=== PATIENT | male | born 1960 | race Caucasian/White ===

== ENCOUNTER 2017-03-14 07:45 | Inpatient (IN) | payer SELFPAY ==
[2017-04-01 12:52] VITALS: BMI 38.4
[2017-04-20] MEDS ORDERED: Iohexol 240 (50 ml) ONE (07:42)
[2017-04-20] MEDS ORDERED: Bupivacaine 0.5% Inj(30mL) ONE (07:42)
[2017-04-20] MEDS ORDERED: Midazolam 2 MG/2 ML VIAL ONE (07:46)
[2017-04-20] MEDS ORDERED: Propofol 10 mg/ml Inj (20 ML) ONE (07:46)
[2017-04-20] MEDS ORDERED: Lactated Ringer's 1,000 ML IV ONE ×5 (07:52→10:15)
[2017-04-20] MEDS ORDERED: Ciprofloxacin 400mg/200ml D5W 400 MG/200 ML BAG IVPB ONE (08:13)
[2017-04-20] MEDS ORDERED: Gentamicin 80 mg in 0.9% NS 160 MG/200 ML BAG IVPB ONE (08:13)
[2017-04-20] MEDS ORDERED: Neostigmine Methylsulfate 3mg/3ml Syringe IV ONE ×2 (10:36→10:41)
[2017-04-20] MEDS ORDERED: Lactated Ringer's 1,000 ML IV SCH (11:00)
[2017-04-20] MEDS: HYDROmorphone 0.5 mg/0.5 ml ISec IVP PRN ×2 (11:42→13:40)
--- NOTE | 2017-04-20 12:00 | PCM.SURG1 ---
Surgeon's Initial Post Op Note - Surgeon's Notes Surgeon: sharon valdovinos Director Recreation: seamus Type of Anesthesia: General Endo Pre-Operative Diagnosis: L RENAL CALCULI Operative Findings: SAME. RETAINED STENT Post-Operative Diagnosis: SAME Operation Performed: L PERCUTANEOUS NEPHROLITHOTOMY, ULTRASONIC LITHOTRIPSY. L LOWER POLE NEPHROSTOMY TUBE INSERTION AND ACCESS, LTIHOTRIPSY. NEPHROSTOGRAM. CYSTOSCOPY, REMOVAL OF RETAINED URTEREAL STENT Specimen/Specimens Removed: STONES, URINE, STENT Estimated Blood Loss: EBL {In ML}: 100 Blood Products Given: N/A Post-Op Condition: Good Date of Surgery/Procedure: 04/20/17 Time of Surgery/Procedure: 11:00
[2017-04-20] MEDS ORDERED: Potassium Ch 20mEq in D5-1/2NS 1,000 ML IV SCH (12:30)
[2017-04-20] MEDS ORDERED: Gentamicin 160 MG in Sodium Chloride 0.9% 100 ML IVPB SCH ×3 (12:45→20:00)
--- NOTE | 2017-04-20 15:14 | CP.PCM.HP ---
Addendum entered and electronically signed by Alphonso Osorio DO 04/20/17 16: 05: for the HTN we will hold his home Diovan and start 5mg of Norvasc for now. We may increase his Norvasc. Original Note: <DevonAlphonso H - Last Filed: 04/20/17 15:38> History of Present Illness - History of Present Illness History of Present Illness: CC: Post op Nephrostomy HPI: Patient is a 57 year old male with a history of HTN and nephrolithiais. He is admitted for post op managment and care after he had 2 nephrostomy tubes placed yesterday and also two urethral stents removed today by Dr. Peterson. He has a hussein catheter in place with no bladder irrigation and also he has two nephrostomy tubes as well on the left side. He is denies any changes in vision , hearing, headches, cough, fever, chills, nausea, vomiting, any recent hematuria, dysuria, diarrhea, joint pain or swelling. PMH: Kidney stones, HTN PSH: urethral stents, nephrostomy, right knee surgery FH: HTN SH: Denies smoking, etoh, or llicit drug use Home medication: Diovan Allergies: Rocephin Present on Admission - Present on Admission Any Indicators Present on Admission: No History of DVT/PE: No History of Uncontrolled Diabetes: No Urinary Catheter: Yes Decubitus Ulcer Present: No Review of Systems - Review of Systems All systems: reviewed and no additional remarkable complaints except - Constitutional Constitutional: absent: Chills, Fever - EENT Ears: absent: Dizziness - Cardiovascular Cardiovascular: absent: Chest Pain, Palpitations - Respiratory Respiratory: absent: Cough, Dyspnea - Gastrointestinal Gastrointestinal: Abdominal Pain. absent: Nausea, Vomiting Additional comments: pain around the upper life side of his abdomen close to the site of two nephrostomy tubes. - Musculoskeletal Musculoskeletal: absent: Numbness, Tingling - Neurological Neurological: absent: Dizziness, Numbness, Paresthesias - Endocrine Endocrine: absent: Palpitations Past Patient History - Past Medical History & Family History Past Medical History?: Yes - Past Social History Smoking Status: Never Smoked - CARDIAC Hx Hypertension: Yes - PULMONARY Hx Respiratory Disorders: Yes (DYSPNEA ON EXERTION) - NEUROLOGICAL Hx Neurological Disorder: No - HEENT Hx HEENT Problems: Yes (GLASSES) - RENAL Hx Kidney Stones: Yes - ENDOCRINE/METABOLIC Hx Endocrine Disorders: No - HEMATOLOGICAL/ONCOLOGICAL Hx Blood Disorders: No - INTEGUMENTARY Hx Dermatological Problems: No - MUSCULOSKELETAL/RHEUMATOLOGICAL Hx Musculoskeletal Disorders: Yes (KNEE SWELLING/ PAIN) - GASTROINTESTINAL Hx Gastrointestinal Disorders: Yes (UMBILICAL HERNIA) - GENITOURINARY/GYNECOLOGICAL Hx Genitourinary Disorders: Yes Hx Hematuria: Yes - PSYCHIATRIC Hx Anxiety: Yes Hx Depression: Yes (ABOUT STONE PROBLEM) - SURGICAL HISTORY Hx Surgeries: Yes Hx Arthroscopy: Yes (RT. KNEE 8 YEARS AGO) Other/Comment: IN [place] CYSTO LITHOTRIPSY. insertion nephrostomy tube - ANESTHESIA Hx Anesthesia: Yes Hx Anesthesia Reactions: No Hx Malignant Hyperthermia: No Has any member of the family had a problem w/ anesthesia?: No Meds Allergies/Adverse Reactions: Allergies Allergy/AdvReac Type Severity Reaction Status Date / Time ceftriaxone [From Rocephin] Allergy Intermediate RASH Verified 03/08/17 09:29 Physical Exam - Constitutional Appears: Non-toxic, No Acute Distress - Head Exam Head Exam: NORMAL INSPECTION - Eye Exam Eye Exam: Normal appearance, PERRL Pupil Exam: NORMAL ACCOMODATION - ENT Exam ENT Exam: Mucous Membranes Moist - Neck Exam Neck exam: Positive for: Normal Inspection - Respiratory Exam Respiratory Exam: Clear to Auscultation Bilateral. absent: Rales, Rhonchi, Wheezes - Cardiovascular Exam Cardiovascular Exam: REGULAR RHYTHM, RRR, +S1, +S2. absent: Gallop, Rubs - GI/Abdominal Exam GI & Abdominal Exam: Normal Bowel Sounds, Soft. absent: Guarding, Rebound, Tenderness - Exam Additional comments: Hussein catheter in place, draining yellow urine. - Extremities Exam Extremities exam: Positive for: normal inspection - Back Exam Back exam: NORMAL INSPECTION, paraspinal tenderness. absent: vertebral tenderness - Psychiatric Exam Psychiatric exam: Normal Affect, Normal Mood - Skin Skin Exam: Dry, Normal Color Results - Vital Signs Recent Vital Signs: Last Vital Signs Temp 97.2 F L 04/20/17 10:52 Pulse 89 04/20/17 13:00 Resp 14 04/20/17 13:00 BP 151/90 H 04/20/17 13:00 Pulse Ox 97 04/20/17 13:00 Assessment & Plan (1) Status post urological surgery Assessment and Plan: Patient is admitted to the regular floor as an inpatient. he has a hussein catheter with hussein bag. He has pain control with 0.5mg of Dilaued prn for pain. He was given a dose of IV Gentamycin 160mg and then Cipro of 400mg Q12H. Follow up urine culture and senstivity. Pain control with Morpine 4mg prn. Status: Acute (2) HTN (hypertension) Assessment and Plan: Will hold home Diovan and have started 5mg of Amlodapine tomorrow morning. Status: Chronic (3) Prophylactic measure Assessment and Plan: Pepcid 20mg, will hold chemic VTE due him being post op with a hussein catheter. SCDs. Status: Acute <Rony Eckert H - Last Filed: 04/20/17 16:22> Results - Vital Signs Recent Vital Signs: Last Vital Signs Temp 97.2 F L 04/20/17 10:52 Pulse 91 H 04/20/17 14:00 Resp 17 04/20/17 14:00 BP 164/96 H 04/20/17 14:00 Pulse Ox 96 04/20/17 14:00 Attending/Attestation - Attestation I have personally seen and examined this patient.: Yes I have fully participated in the care of the patient.: Yes I have reviewed all pertinent clinical information: Yes Notes (Text): 04/20/17 16:18 Medical attending: Patient was seen and examined by me, agrees the above note by biomedical equipment technician. The patient was in PACU when we saw him earlier in the day he had extensive urological procedures done. Per review the notes he had a previous urethral stents that were removed today. He also ultrasound lithotripsy and the placement of 2 left-sided nephrostomy tubes. When we saw him the patient was awake he said that he did have some tenderness over the left flank, he was controlled with the pain medication he is getting. He also has a Hussein catheter as well. There is a past medical history that also includes hypertension. He takes Diovan however considering the recent procedures that he's had will hold off on the Diovan given [facility] for the time being Thank you very much, Rony Eckert
[2017-04-20] MEDS ORDERED: HYDROmorphone 0.5 mg/0.5 ml ISec IVP PRN (16:03)
[2017-04-20 16:59] LABS: BASO % 0.2 % (0.0-2.0); HEMATOCRIT 38.6 % (35.0-51.0); LYMPH # 1.3 K/uL (1.0-4.3); LYMPH % 9.3 % (20.0-40.0); MEAN CELL VOLUME 87.9 fL (80.0-94.0); MEAN CORPUSCULAR HEMOGLOBIN 29.3 pg (27.0-31.0); MEAN CORPUSCULAR HGB CONC 33.3 g/dL (33.0-37.0); MEAN PLATELET VOLUME 8.5 fL (7.2-11.7); MONO # 0.9 K/uL (0.0-0.8); MONO % 6.5 % (0.0-10.0); PLATELET COUNT 282 K/uL (130-400); RED CELL DISTRIBUTION WIDTH 13.4 % (11.5-14.5); WHITE BLOOD COUNT 13.6 K/uL (4.8-10.8)
[2017-04-20 17:18] LABS: POTASSIUM 5.4 mmol/L (3.6-5.2)
[2017-04-20 17:20] LABS: ALB/GLOB RATIO 1.1 (1.0-2.1); CALCIUM 7.8 mg/dl (8.6-10.4); TOTAL PROTEIN 6.5 g/dL (6.3-8.3)
[2017-04-20] MEDS ORDERED: Gentamicin 160 MG in Sodium Chloride 0.9% 100 ML IVPB ONE (18:00)
[2017-04-20 18:35] LABS: NEUTROPHIL 83 % (50-75); TOTAL CELLS COUNTED 100
[2017-04-20] MEDS: Morphine 4 MG/ML VIAL IVP PRN (20:00)
[2017-04-20] MEDS: Ciprofloxacin 400mg/200ml D5W 400 MG/200 ML BAG IVPB SCH (21:18)
[2017-04-21] MEDS: Lactated Ringer's 1,000 ML IV SCH ×2 (00:20→10:50)
[2017-04-21] MEDS: Morphine 4 MG/ML VIAL IVP PRN ×2 (04:46→17:01)
[2017-04-21 07:02] LABS: POTASSIUM 4.1 mmol/L (3.6-5.2)
[2017-04-21 07:04] LABS: ALB/GLOB RATIO 1.2 (1.0-2.1); BILIRUBIN,TOTAL 1.4 mg/dL (0.2-1.3); TOTAL PROTEIN 6.9 g/dL (6.3-8.3)
[2017-04-21 07:05] LABS: CALCIUM 8.3 mg/dl (8.6-10.4); MAGNESIUM 1.9 mg/dL (1.6-2.3); PHOSPHOROUS 3.3 mg/dL (2.5-4.5)
[2017-04-21 07:26] LABS: BASO % 0.3 % (0.0-2.0); EOS % 0.1 % (0.0-4.0); HEMATOCRIT 39.5 % (35.0-51.0); LYMPH # 1.6 K/uL (1.0-4.3); LYMPH % 9.5 % (20.0-40.0); MEAN CORPUSCULAR HEMOGLOBIN 29.1 pg (27.0-31.0); MEAN CORPUSCULAR HGB CONC 33.1 g/dL (33.0-37.0); MEAN PLATELET VOLUME 9.2 fL (7.2-11.7); MONO # 1.3 K/uL (0.0-0.8); MONO % 7.9 % (0.0-10.0); PLATELET COUNT 267 K/uL (130-400); RED CELL DISTRIBUTION WIDTH 13.6 % (11.5-14.5); WHITE BLOOD COUNT 16.4 K/uL (4.8-10.8)
[2017-04-21] MEDS: Ciprofloxacin 400mg/200ml D5W 400 MG/200 ML BAG IVPB SCH ×2 (08:00→19:44)
[2017-04-21 08:28] LABS: NEUTROPHIL 89 % (50-75); TOTAL CELLS COUNTED 100
--- NOTE | 2017-04-21 11:53 | CP.PCM.PN ---
<Kelly Monge DO - Last Filed: 04/21/17 13:49> Subjective - Date & Time of Evaluation Date of Evaluation: 04/21/17 Time of Evaluation: 07:20 - Subjective Subjective: PGY1 progress note for Dr. Eckert Patient seen and examined. Patient states his pain is well-controlled. Patient denies fever and chills. Patient states he has had small sips of water but has not tried to eat yet. Patient's hussein catheter removed this morning. Objective - Vital Signs/Intake and Output Vital Signs (last 24 hours): Temp Pulse Resp BP Pulse Ox 98.8 F 99 H 18 158/96 H 95 04/21/17 07:15 04/21/17 07:15 04/21/17 07:15 04/21/17 07:15 04/21/17 07:15 Intake and Output: 04/21/17 04/21/17 06:59 18:59 Intake Total 2170 Output Total 2500 Balance -330 - Medications Medications: Current Medications Amlodipine Besylate (Norvasc) 5 mg PO DAILY [facility] Docusate Sodium (Colace) 100 mg PO BID [facility] Last Admin: 04/20/17 20:03 Dose: 100 mg Famotidine (Pepcid) 20 mg PO BID [facility] Last Admin: 04/20/17 20:10 Dose: 20 mg Hydromorphone HCl (Dilaudid) 0.5 mg IVP Q5M PRN PRN Reason: Pain, severe (8-10) Last Admin: 04/20/17 16:15 Dose: 0.5 mg Ciprofloxacin (Cipro 400mg/200ml Dsw) 400 mg in 200 mls @ 133 mls/hr IVPB Q12H [facility] Last Admin: 04/20/17 21:18 Dose: 133 mls/hr Lactated Ringer's (Lactated Ringer's) 1,000 mls @ 100 mls/hr IV .Q10H [facility] Last Admin: 04/21/17 00:20 Dose: Not Given Morphine Sulfate (Morphine) 4 mg IVP Q4 PRN PRN Reason: Pain, moderate (4-7) Last Admin: 04/21/17 04:46 Dose: 4 mg - Labs Labs: 04/21/17 06:29 04/21/17 06:29 - Constitutional Appears: No Acute Distress - Head Exam Head Exam: ATRAUMATIC, NORMOCEPHALIC - Eye Exam Eye Exam: EOMI - ENT Exam ENT Exam: Mucous Membranes Moist - Respiratory Exam Respiratory Exam: NORMAL BREATHING PATTERN - Cardiovascular Exam Cardiovascular Exam: +S1, +S2 - GI/Abdominal Exam GI & Abdominal Exam: Soft, Tenderness (left flank), Normal Bowel Sounds - Extremities Exam Extremities Exam: absent: Pedal Edema Additional comments: SCDs - Back Exam Additional comments: left flank- 2 nephrostomy tubes, sanguinous drainage inflammation, mild tenderness around tubes - Neurological Exam Neurological Exam: Alert, Awake - Psychiatric Exam Psychiatric exam: Normal Affect - Skin Skin Exam: Warm Assessment and Plan - Assessment and Plan (Free Text) Assessment: (1) Status post urological surgery Assessment and Plan: He was given a dose of IV Gentamycin 160mg perioperatively and is now on Cipro of 400mg Q12H Follow up urine culture and sensitivity Pain control with Morphine 4mg prn Status: Acute (2) HTN (hypertension) Assessment and Plan: Will hold home Diovan as patient just had procedure on kidney, will continue 5mg norvasc Status: Chronic (3) Prophylactic measure Assessment and Plan: Pepcid 20mg will hold chemic VTE SCDs. Status: Acute <Eckert,Peter H - Last Filed: 04/21/17 15:21> Objective - Vital Signs/Intake and Output Vital Signs (last 24 hours): Temp Pulse Resp BP Pulse Ox 98.8 F 99 H 18 158/96 H 95 04/21/17 07:15 04/21/17 07:15 04/21/17 07:15 04/21/17 07:15 04/21/17 07:15 Intake and Output: 04/21/17 04/21/17 06:59 18:59 Intake Total 2170 Output Total 2500 Balance -330 - Medications Medications: Current Medications Amlodipine Besylate (Norvasc) 5 mg PO DAILY [facility] Last Admin: 04/21/17 12:29 Dose: 5 mg Docusate Sodium (Colace) 100 mg PO BID [facility] Last Admin: 04/21/17 12:30 Dose: 100 mg Famotidine (Pepcid) 20 mg PO BID [facility] Last Admin: 04/21/17 12:30 Dose: 20 mg Hydromorphone HCl (Dilaudid) 0.5 mg IVP Q5M PRN PRN Reason: Pain, severe (8-10) Last Admin: 04/20/17 16:15 Dose: 0.5 mg Ciprofloxacin (Cipro 400mg/200ml Dsw) 400 mg in 200 mls @ 133 mls/hr IVPB Q12H [facility] Last Admin: 04/21/17 08:00 Dose: 133 mls/hr Lactated Ringer's (Lactated Ringer's) 1,000 mls @ 100 mls/hr IV .Q10H [facility] Last Admin: 04/21/17 10:50 Dose: 100 mls/hr Morphine Sulfate (Morphine) 4 mg IVP Q4 PRN PRN Reason: Pain, moderate (4-7) Last Admin: 04/21/17 04:46 Dose: 4 mg - Labs Labs: 04/21/17 06:29 04/21/17 06:29 Attending/Attestation - Attestation I have personally seen and examined this patient.: Yes I have fully participated in the care of the patient.: Yes I have reviewed all pertinent clinical information, including history, physical exam and plan: Yes Notes (Text): 04/21/17 15:18 Medical attending: Patient was seen and examined by me, agrees the above note by medical reviewer. Earlier in the morning the patient's Hussein catheter was removed. The patient stated that his pain was controlled when we saw him. He denied any fevers or chills. He stated that his breathing was stable as well. His white blood cell count is somewhat higher today, it's 16. He is on Cipro IV for the time being were pending cultures at this time if need to be control was changed to IV Primaxin if there is a positive culture is resistant to Cipro. As mentioned before he has to left-sided nephrostomy tubes Thank you very much, Rony Eckert
--- NOTE | 2017-04-21 14:53 | RAD ---
PROCEDURE: HISTORY: LT RENAL CALCULUS COMPARISON: TECHNIQUE: Total fluoroscopic time utilized during the procedure: 360.9 seconds FINDINGS: Submitted images from the current procedure: 11 IMPRESSION: Less than 1 hour fluoroscopic time utilized during performance of the procedure
[2017-04-21 15:52] VITALS: RESP 20; O2SAT 96
[2017-04-22] MEDS: Morphine 4 MG/ML VIAL IVP PRN ×2 (00:50→09:16)
[2017-04-22] MEDS ORDERED: Alum-Mag Hydrox-Simethicone Susp (30 mL) PO STA (06:34)
[2017-04-22 06:53] LABS: POTASSIUM 3.5 mmol/L (3.6-5.2)
[2017-04-22 06:55] LABS: ALB/GLOB RATIO 1.1 (1.0-2.1); BILIRUBIN,TOTAL 1.4 mg/dL (0.2-1.3); TOTAL PROTEIN 7.7 g/dL (6.3-8.3)
--- NOTE | 2017-04-22 07:15 | PCM.URO ---
Urology Progress Note - General General: No Complaints, Tolerating Diet - Subjective Abdominal Pain: No Flank Pain: Yes (mild) Nausea: No Vomiting: No Voiding Well: Yes Hematuria: Yes (mild) Good Stream: Yes Stone Passed: Yes (many stones voided per urethra) Dsypnea: No Chest Pain: No Fever & Chills: No - Objective Lab Studies: Reviewed Lab Results Last 24 Hours: Laboratory Results - last 24 hr 04/21/17 04/22/17 06:29 06:28 WBC 16.4 H RBC 4.49 Hgb 13.1 Hct 39.5 MCV 88.0 MCH 29.1 MCHC 33.1 RDW 13.6 Plt Count 267 MPV 9.2 Neut % (Auto) 82.2 H Lymph % (Auto) 9.5 L [place] % (Auto) 7.9 Eos % (Auto) 0.1 Baso % (Auto) 0.3 Neut # 13.4 H Lymph # 1.6 Stoddard # 1.3 H Eos # 0.0 Baso # 0.0 Neutrophils % (Manual) 89 H Band Neutrophils % 1 Lymphocytes % (Manual) 6 L Monocytes % (Manual) 4 Platelet Estimate Normal RBC Morphology Normal Sodium 136 Potassium 3.5 L Chloride 96 L Carbon Dioxide 28 Anion Gap 16 BUN 20 Creatinine 1.7 H Est GFR ( Amer) 50 Est GFR (Non-Af Amer) 42 Random Glucose 110 Calcium 9.0 Total Bilirubin 1.4 H AST 19 ALT 18 L Alkaline Phosphatase 62 Total Protein 7.7 Albumin 4.0 Globulin 3.7 Albumin/Globulin Ratio 1.1 Intake & Output: Intake & Output 04/21/17 04/22/17 04/22/17 18:59 06:59 18:59 Intake Total 320 Output Total 975 950 Balance -645 -674 Intake: Intake, IV Amount 200 Right Hand 200 Oral 120 Output: Drainage 500 700 Left 300 370 Left Lateral Abdomen 200 330 Urine 475 250 Urethral (Rodrigues) 475 250 Other: # Voids Urethral (Rodrigues) 2 Vital Signs: Vital Signs - 24 hr 04/21/17 04/21/17 04/22/17 15:51 23:05 05:24 Temperature 100.4 F H 99.6 F 98.9 F Pulse Rate 109 H 111 H 98 H Respiratory 20 20 20 Rate Blood Pressure 152/93 H 159/96 H 167/110 H O2 Sat by Pulse 96 96 96 Oximetry - Physical Exam Abdominal Exam: Soft, Non-Tender, Non-Distended (lungs - clear heart- reg rhythm ) Bowel Sounds: Normal Wound: Clean, Healing Well Back: No CVA Tenderness Genitalia: Without Inflammation Urine Color: Redmon Extremities: Normal: Bilateral - Male Phallus: Normal Scrotum: Normal - Plan Additional Information: imp: progressing well. p: home today. outpt fu. antibiotic rx. NT to leg bag. further rx t/f - Date & Time of Note Date: 04/22/17 Time: 07:15
[2017-04-22 07:16] LABS: BASO # 0.1 K/uL (0.0-0.2); BASO % 0.4 % (0.0-2.0); EOS # 0.1 K/uL (0.0-0.7); EOS % 0.5 % (0.0-4.0); HEMATOCRIT 40.5 % (35.0-51.0); MEAN CELL VOLUME 88.7 fL (80.0-94.0); MEAN CORPUSCULAR HGB CONC 33.8 g/dL (33.0-37.0); MEAN PLATELET VOLUME 9.3 fL (7.2-11.7); MONO # 1.7 K/uL (0.0-0.8); MONO % 9.6 % (0.0-10.0); NRBC % 0.1 % (0.0-2.0); RED CELL DISTRIBUTION WIDTH 13.7 % (11.5-14.5); WHITE BLOOD COUNT 17.7 K/uL (4.8-10.8)
[2017-04-22] MEDS ORDERED: Potassium Chloride 20 mEq ER Tab PO ONE (08:22)
[2017-04-22] MEDS: Ciprofloxacin 400mg/200ml D5W 400 MG/200 ML BAG IVPB SCH (08:30)
[2017-04-22 14:23] VITALS: TEMP 98.1
[2017-04-22 14:30] VITALS: BP 150/95; PULSE 95
--- NOTE | 2017-04-22 16:12 | CP.PCM.DIS ---
<Kelly Monge DO - Last Filed: 04/22/17 16:09> Provider - Provider Date of Admission: 04/20/17 06:25 Attending physician: Geraldine Naranjo MD Consults: Dr. Pina Naranjo Time Spent in preparation of Discharge (in minutes): 35 Diagnosis - Discharge Diagnosis (1) Status post urological surgery Status: Acute Comment: Patient POD # 2 left percutaneous nephrolithotomy, ultrasonic lithotripsy, left lower pole nephrostomy tube insertion, cystoscopy, removal retained ureteral stent. (2) HTN (hypertension) Status: Chronic Comment: Changed patient's BP med from Diovan to coreg and norvasc to avoid medication that can affect renal function given recent intervention. Hospital Course - Lab Results Lab Results: Micro Results 04/20/17 16:00 Urine,Kidney Urine Culture - Final No Growth (<1,000 CFU/ML) Most Recent Lab Values WBC 17.7 K/uL (4.8-10.8) H 04/22/17 06:28 RBC 4.57 Mil/uL (4.40-5.90) 04/22/17 06:28 Hgb 13.7 g/dL (12.0-18.0) 04/22/17 06:28 Hct 40.5 % (35.0-51.0) 04/22/17 06:28 MCV 88.7 fL (80.0-94.0) 04/22/17 06:28 MCH 30.0 pg (27.0-31.0) 04/22/17 06:28 MCHC 33.8 g/dL (33.0-37.0) 04/22/17 06:28 RDW 13.7 % (11.5-14.5) 04/22/17 06:28 Plt Count 303 K/uL (130-400) 04/22/17 06:28 MPV 9.3 fL (7.2-11.7) 04/22/17 06:28 Neut % (Auto) 72.5 % (50.0-75.0) 04/22/17 06:28 Lymph % (Auto) 17.0 % (20.0-40.0) L 04/22/17 06:28 [place] % (Auto) 9.6 % (0.0-10.0) 04/22/17 06:28 Eos % (Auto) 0.5 % (0.0-4.0) 04/22/17 06:28 Baso % (Auto) 0.4 % (0.0-2.0) 04/22/17 06:28 Neut # 12.9 K/uL (1.8-7.0) H 04/22/17 06:28 Lymph # 3.0 K/uL (1.0-4.3) 04/22/17 06:28 [place] # 1.7 K/uL (0.0-0.8) H 04/22/17 06:28 Eos # 0.1 K/uL (0.0-0.7) 04/22/17 06:28 Baso # 0.1 K/uL (0.0-0.2) 04/22/17 06:28 Neutrophils % (Manual) 89 % (50-75) H 04/21/17 06:29 Band Neutrophils % 1 % (0-2) 04/21/17 06:29 Lymphocytes % (Manual) 6 % (20-40) L 04/21/17 06:29 Monocytes % (Manual) 4 % (0-10) 04/21/17 06:29 Platelet Estimate Normal (NORMAL) 04/21/17 06:29 RBC Morphology Normal 04/21/17 06:29 Sodium 136 mmol/L (132-148) 04/22/17 06:28 Potassium 3.5 mmol/L (3.6-5.2) L 04/22/17 06:28 Chloride 96 mmol/L (98-107) L 04/22/17 06:28 Carbon Dioxide 28 mmol/L (22-30) 04/22/17 06:28 Anion Gap 16 (10-20) 04/22/17 06:28 BUN 20 mg/dL (9-20) 04/22/17 06:28 Creatinine 1.7 MG/DL (0.8-1.5) H 04/22/17 06:28 Est GFR ( Amer) 50 04/22/17 06:28 Est GFR (Non-Af Amer) 42 04/22/17 06:28 Random Glucose 110 mg/dL (75-110) 04/22/17 06:28 Calcium 9.0 mg/dl (8.6-10.4) 04/22/17 06:28 Phosphorus 3.3 mg/dL (2.5-4.5) 04/21/17 06:29 Magnesium 1.9 mg/dL (1.6-2.3) 04/21/17 06:29 Total Bilirubin 1.4 mg/dL (0.2-1.3) H 04/22/17 06:28 AST 19 U/L (17-59) 04/22/17 06:28 ALT 18 U/L (21-72) L 04/22/17 06:28 Alkaline Phosphatase 62 U/L (38-126) 04/22/17 06:28 Total Protein 7.7 g/dL (6.3-8.3) 04/22/17 06:28 Albumin 4.0 g/dL (3.5-5.0) 04/22/17 06:28 Globulin 3.7 gm/dL (2.2-3.9) 04/22/17 06:28 Albumin/Globulin Ratio 1.1 (1.0-2.1) 04/22/17 06:28 - Hospital Course Hospital Course: On Admission Patient is a 57 year old male with a history of HTN and nephrolithiais. He is admitted for post op managment and care after he had 2 nephrostomy tubes placed yesterday and also two urethral stents removed today by Dr. Peterson. He has a hussein catheter in place with no bladder irrigation and also he has two nephrostomy tubes as well on the left side. He is denies any changes in vision , hearing, headches, cough, fever, chills, nausea, vomiting, any recent hematuria, dysuria, diarrhea, joint pain or swelling. During Hospitalization Patient's blood pressure was managed with norvasc and coreg. Patient's home medication Diovan discontinued to avoid medications that could affect kidney function. Patient was given cipro IV during hospitalization. Urine culture resulted negative for growth. On Discharge Patient is stable for discharge home per Dr. Eckert. Patient is to follow up with Dr. Naranjo within one week. Patient is to stop taking home medication Diovan on discharge due to risk of kidney injury. Patient is being discharged with the following medications: Norvasc 10mg daily, Coreg 6.25mg twice a day. Per Dr. Naranjo, patient is being given the following medications: cipro 500mg twice a day for 10 days, percocet 5/325 take every 4 hours as needed for pain, # 30, colace 100mg three times a day, #100. Patient is to return to the ED if his symptoms reoccur or worsen. This was explained to the patient who understands and agrees. Discharge Exam - Head Exam Head Exam: ATRAUMATIC, NORMOCEPHALIC - Eye Exam Eye Exam: EOMI - ENT Exam ENT Exam: Mucous Membranes Moist - Respiratory Exam Respiratory Exam: Clear to PA & Lateral, NORMAL BREATHING PATTERN - Cardiovascular Exam Cardiovascular Exam: +S1, +S2 - GI/Abdominal Exam GI & Abdominal Exam: Normal Bowel Sounds, Soft - Extremities Exam Extremities exam: normal inspection - Back Exam Additional comments: two left sided nephrostomy tubes in place with sanguinous drainage - Neurological Exam Neurological exam: Alert - Psychiatric Exam Psychiatric exam: Normal Affect - Skin Skin Exam: Warm Discharge Plan - Discharge Medications Prescriptions: amLODIPine [Norvasc] 10 mg PO DAILY #30 tab Carvedilol [Coreg] 6.25 mg PO BID #60 tab - Follow Up Plan Condition: GOOD Disposition: HOME/ ROUTINE Instructions: Ciprofloxacin (By mouth), Oxycodone/Acetaminophen (By mouth), Laxative, Stool Softeners (By mouth), Amlodipine (By mouth), Carvedilol (By mouth), Percutaneous Nephrolithotomy (DC), Nephrostomy Tube Care (DC), Hypertension (DC), Hypertension (GEN) Additional Instructions: Patient is stable for discharge home per Dr. Eckert. Patient is to follow up with Dr. Naranjo within one week. Patient is to stop taking home medication Diovan on discharge due to risk of kidney injury. Patient is being discharged with the following medications: Norvasc 10mg daily, Coreg 6.25mg twice a day. Per Dr. Naranjo, patient is being given the following medications: cipro 500mg twice a day for 10 days, percocet 5/325 take every 4 hours as needed for pain, # 30, colace 100mg three times a day, #100. Patient is to return to the ED if his symptoms reoccur or worsen. This was explained to the patient who understands and agrees. Referrals: Geraldine Naranjo MD [Staff Provider] - 7 Days <Rony Eckert H - Last Filed: 04/23/17 08:24> Provider - Provider Date of Admission: 04/20/17 06:25 Attending physician: Geraldine Naranjo MD Hospital Course - Lab Results Lab Results: Micro Results 04/20/17 16:00 Urine,Kidney Urine Culture - Final No Growth (<1,000 CFU/ML) Most Recent Lab Values WBC 17.7 K/uL (4.8-10.8) H 04/22/17 06:28 RBC 4.57 Mil/uL (4.40-5.90) 04/22/17 06:28 Hgb 13.7 g/dL (12.0-18.0) 04/22/17 06:28 Hct 40.5 % (35.0-51.0) 04/22/17 06:28 MCV 88.7 fL (80.0-94.0) 04/22/17 06:28 MCH 30.0 pg (27.0-31.0) 04/22/17 06:28 MCHC 33.8 g/dL (33.0-37.0) 04/22/17 06:28 RDW 13.7 % (11.5-14.5) 04/22/17 06:28 Plt Count 303 K/uL (130-400) 04/22/17 06:28 MPV 9.3 fL (7.2-11.7) 04/22/17 06:28 Neut % (Auto) 72.5 % (50.0-75.0) 04/22/17 06:28 Lymph % (Auto) 17.0 % (20.0-40.0) L 04/22/17 06:28 [place] % (Auto) 9.6 % (0.0-10.0) 04/22/17 06:28 Eos % (Auto) 0.5 % (0.0-4.0) 04/22/17 06:28 Baso % (Auto) 0.4 % (0.0-2.0) 04/22/17 06:28 Neut # 12.9 K/uL (1.8-7.0) H 04/22/17 06:28 Lymph # 3.0 K/uL (1.0-4.3) 04/22/17 06:28 [place] # 1.7 K/uL (0.0-0.8) H 04/22/17 06:28 Eos # 0.1 K/uL (0.0-0.7) 04/22/17 06:28 Baso # 0.1 K/uL (0.0-0.2) 04/22/17 06:28 Neutrophils % (Manual) 89 % (50-75) H 04/21/17 06:29 Band Neutrophils % 1 % (0-2) 04/21/17 06:29 Lymphocytes % (Manual) 6 % (20-40) L 04/21/17 06:29 Monocytes % (Manual) 4 % (0-10) 04/21/17 06:29 Platelet Estimate Normal (NORMAL) 04/21/17 06:29 RBC Morphology Normal 04/21/17 06:29 Sodium 136 mmol/L (132-148) 04/22/17 06:28 Potassium 3.5 mmol/L (3.6-5.2) L 04/22/17 06:28 Chloride 96 mmol/L (98-107) L 04/22/17 06:28 Carbon Dioxide 28 mmol/L (22-30) 04/22/17 06:28 Anion Gap 16 (10-20) 04/22/17 06:28 BUN 20 mg/dL (9-20) 04/22/17 06:28 Creatinine 1.7 MG/DL (0.8-1.5) H 04/22/17 06:28 Est GFR ( Amer) 50 04/22/17 06:28 Est GFR (Non-Af Amer) 42 04/22/17 06:28 Random Glucose 110 mg/dL (75-110) 04/22/17 06:28 Calcium 9.0 mg/dl (8.6-10.4) 04/22/17 06:28 Phosphorus 3.3 mg/dL (2.5-4.5) 04/21/17 06:29 Magnesium 1.9 mg/dL (1.6-2.3) 04/21/17 06:29 Total Bilirubin 1.4 mg/dL (0.2-1.3) H 04/22/17 06:28 AST 19 U/L (17-59) 04/22/17 06:28 ALT 18 U/L (21-72) L 04/22/17 06:28 Alkaline Phosphatase 62 U/L (38-126) 04/22/17 06:28 Total Protein 7.7 g/dL (6.3-8.3) 04/22/17 06:28 Albumin 4.0 g/dL (3.5-5.0) 04/22/17 06:28 Globulin 3.7 gm/dL (2.2-3.9) 04/22/17 06:28 Albumin/Globulin Ratio 1.1 (1.0-2.1) 04/22/17 06:28 Attending/Attestation - Attestation I have personally seen and examined this patient.: Yes I have fully participated in the care of the patient.: Yes I have reviewed all pertinent clinical information, including history, physical exam and plan: Yes Notes (Text): Medical attending: Patient was seen and examined by me, agrees the above note by medical staff director. As mentioned before the patient no longer has his Hussein catheter. He has the nephrostomy tubes in the left flank. He says that the flank pain was controlled with the medications we were giving him. The patient was able to ambulate on his own, he was tolerating a diet, he denied having shortness of breath, denied having chest pain, denied having abdominal pain. With regards to the patient's high blood pressure, he previously was on Diovan however we made it clear to him that were changing his medication to include Coreg and Norvasc. Urology has left an RX for for Cipro to take he and he will need to follow-up with urology for further care of the nephrostomy tubes that he has Thank you Rony Eckert
--- NOTE | 2017-04-26 12:52 | OP ---
PROCEDURE DATE: 04/20/2017 DATE OF PROCEDURE: 04/20/2017 PREOPERATIVE DIAGNOSES: Left renal calculi. Left hydronephrosis. Left retained encrusted ureteral stent. POSTOPERATIVE DIAGNOSES: Left renal calculi. Left hydronephrosis. Left retained encrusted ureteral stent. PROCEDURE: Left percutaneous nephrolithotomy. Left percutaneous nephrostomy tube access insertion. Nephrostogram. Cystoscopy. Removal of retained ureteral stent. Ultrasonic lithotripsy. DESCRIPTION OF PROCEDURE FOLLOWS: The patient was in supine position. The Rodrigues catheter was ins erted per urethra under sterile conditions. The patient had received general anesthesia. The patient received perioperative antibiotics. Genera l anesthesia was administered via endotracheal tube. The patient was placed in the prone position. The procedure was performed under fluoroscopic control as well as under videoscopic control. The left flank was prepped and draped in a sterile fashion. A 0.035-inch guidewire was inserted into the nephrostomy tube. The track was dilated with flexible f ascial dilators and balloon dilators. The nephroscope sheath was advanced over the balloon. Nephroscopy was performed with the 24-Turkmen 0 degree offset nephroscope. The stent was encountered and noted to be encrusted. Ultrasonic lithotripsy of the stent was performed until the stent was vis ualized. The stent was then grasped and was brought through the nephroscope sheath to the distal end of the nephroscope sheath. However, the stent could not be removed due to its apparent restricted m ovement (secondary to encrustation, within the bladder). The renal pelvic stone was identified. Ultrasonic lithotripsy of the stone was performed. Multiple fragments were removed under ultrasound control with ultrasound and suction. Multiple stones were re moved using grasping forceps. Attention was then turned toward the lower pole where there were a large amount of stones. Direct ac cess into the lower pole was performed using a triangulation technique. An 18 gauge needle was inser alda into the jessica. There was clear urine returned on first stick. The guidewire was inserted. The track was dilated with flexible fascial dilators. A second guidewire was inserted through the 12-Fr ench coaxial sheath. Balloon dilation was performed and the Amplatz sheath was inserted over the bal loon. Nephroscopy was performed. Multiple stones were identified and removed from this lower pole c charli. A nephrostomy tube was left in place as well. The nephroscope was reinserted into the more cephalad mid pole nephroscopy sheath. The ureteropelvic junction was identified where the stent was going down the sheath. A guidewire was inserted through an open-ended catheter down to the bladder. A [place] nephrostomy tube was then inserted. Nephrosc opy was performed and confirmed proper position. Nephrostomy tubes were secured to the skin. Marcaine was infiltrated for local anesthesia. A steril e dressing was applied. The patient was then placed in the prone position. The patient was then placed in the lithotomy position. The genitalia prepped and draped sterilely. Cystoscopy was performed. A 22-Turkmen cystoscope sheath was introduced under direct vision. The lef t ureteral stent was identified and grasped with rigid grasping forceps. The stent was removed under direct visual as well as fluoroscopic control. The stent was noted to be encrusted within the bladd er. The proximal stent had been previously de-encrusted under nephroscopic and ultrasound control. The stent was fully removed intact. A Rodrigues catheter was inserted. The patient was returned to the supine position. The patient tolerat ed the procedure without complication. The patient was transferred to the recovery room in satisfact ory condition. Geraldine Naranjo MD cc: [phone] TT: 04/26/2017 12:51:46 jeffrey
== END 2017-04-22 15:50 | disposition home or self-care (01) | DRG 304 ==
LOC: C.9S 04-20 06:25 → C.6T 04-20 17:48
PROVIDERS: ADMIT Urology; ATTEND Urology
PROC: 0TP98DZ Removal of Intraluminal Device from Ureter, Via Natural or Artificial Opening Endoscopic (ICD-10-PCS; 2017-04-20)
PROC: 0T778DZ Dilation of Left Ureter with Intraluminal Device, Via Natural or Artificial Opening Endoscopic (ICD-10-PCS; 2017-04-20)
PROC: 0TC13ZZ Extirpation of Matter from Left Kidney, Percutaneous Approach (ICD-10-PCS; principal; 2017-04-20 07:45)
PROC: 0T9130Z Drainage of Left Kidney with Drainage Device, Percutaneous Approach (ICD-10-PCS; 2017-04-20 07:45)
DX: N20.0 Calculus of kidney (principal); T83.89XA Other specified complication of genitourinary prosthetic devices, implants and grafts, initial encounter; N13.2 Hydronephrosis with renal and ureteral calculous obstruction; I10 Essential (primary) hypertension; Y73.1 Therapeutic (nonsurgical) and rehabilitative gastroenterology and urology devices associated with adverse incidents; Z82.49 Family history of ischemic heart disease and other diseases of the circulatory system; Z93.6 Other artificial openings of urinary tract status; Z87.442 Personal history of urinary calculi; Y83.1 Surgical operation with implant of artificial internal device as the cause of abnormal reaction of the patient, or of later complication, without mention of misadventure at the time of the procedure

== ENCOUNTER 2017-04-19 07:57 | Day surgery (SDC) | payer SELFPAY ==
[2017-04-19 08:33] VITALS: RESP 18; TEMP 98; O2SAT 98
[2017-04-19] MEDS ORDERED: Propofol 10 mg/ml Inj (20 ML) ONE (09:10)
[2017-04-19] MEDS ORDERED: Midazolam 2 MG/2 ML VIAL ONE (09:11)
[2017-04-19] MEDS ORDERED: Lidocaine Hydrochloride 5 ML INJ ONE (09:14)
[2017-04-19] MEDS ORDERED: Lidocaine 2% Inj (20ml) ONE (09:27)
[2017-04-19] MEDS ORDERED: Ciprofloxacin 400mg/200ml D5W 400 MG/200 ML BAG IVPB STA (09:29)
[2017-04-19] MEDS ORDERED: Iodixanol 320 MG/ML 200 ML BOTTLE IV ONE (09:29)
--- NOTE | 2017-04-19 10:37 | CP.SDSHP ---
Same Day Surgery H & P - History Proposed Procedure: Left percutaneous nephrostomy tube placement. Pre-Op Diagnosis: Ureteral calculus - Allergies Allergies: Allergies ceftriaxone [From Rocephin] Allergy (Intermediate, Verified 03/08/17 09:29) RASH - Physical Exam Vital Signs: Vital Signs 04/19/17 08:10 Temperature 98 F Pulse Rate 90 Respiratory 18 Rate Blood Pressure 166/100 H O2 Sat by Pulse 98 Oximetry Mental Status: Alert & Oriented x3 Neuro: WNL Heart: WNL - Impression Impression: Pt with obstructing renal stone left kidney. Plan left perc. nephrostomy tube. Pt. Evaluated Today:Candidate for Anesthesia & Procedure: Yes (asa 2 malampati 3) - Date & Time Date: 04/19/17 Time: 09:30 Short Stay Discharge - Short Stay Discharge Admitting Diagnosis/Reason for Visit: URINARY CALCULUS, UNSPECIFIED Disposition: HOME/ ROUTINE
--- NOTE | 2017-04-19 10:39 | PCM.SURG1 ---
Surgeon's Initial Post Op Note - Surgeon's Notes Surgeon: David Smith MD Professional Organizer: None Type of Anesthesia: IV Sedation Pre-Operative Diagnosis: Obstructing renal calculus Operative Findings: US showed moderate left hydronephrosis. Post-Operative Diagnosis: Obstructing renal calculus. Operation Performed: Left perc. nephrostomy tube placement. Specimen/Specimens Removed: none Estimated Blood Loss: EBL {In ML}: 3 Blood Products Given: N/A Drains Used: No Drains Post-Op Condition: Fair Date of Surgery/Procedure: 04/19/17 Time of Surgery/Procedure: 09:55
[2017-04-19 11:48] VITALS: BP 145/84; PULSE 82
== END 2017-04-19 12:00 | disposition home or self-care (01) ==
LOC: C.SPRAD 07:57
PROVIDERS: ATTEND Radiology Vascular & Interventional Radiology
DX: N20.9 Urinary calculus, unspecified (principal); N13.30 Unspecified hydronephrosis
CPT/HCPCS: 50395; 50432; 74425; 94770; C1729; C1769; J0744; J1644; J2250; J2704; J3010; Q9966

== ENCOUNTER 2017-05-11 07:53 | Inpatient (IN) | payer SELFPAY ==
[2017-05-06 08:21] VITALS: BMI 35.7
[2017-05-11] MEDS ORDERED: Succinylcholine Chloride 20 mg/ml Syr (5 ml) IV ONE (08:47)
[2017-05-11] MEDS ORDERED: Phenylephrine 10 mg/ml Inj ONE (08:47)
[2017-05-11] MEDS ORDERED: Midazolam 2 MG/2 ML VIAL ONE (08:52)
[2017-05-11] MEDS ORDERED: Propofol 10 mg/ml Inj (20 ML) ONE (08:53)
--- NOTE | 2017-05-11 08:56 | CT ---
PROCEDURE: CT Abdomen and Pelvis without intravenous contrast HISTORY: Pre-op; Dx.: UROLITHIASIS COMPARISON: None. TECHNIQUE: Without contrast.. Contrast Dose: 0 Radiation dose: Total exam DLP = 1053.92 mGy-cm. This CT exam was performed using one or more of the following dose reduction techniques: Automated exposure control, adjustment of the mA and/or kV according to patient size, and/or use of iterative reconstruction technique. FINDINGS: LOWER THORAX: Unremarkable. LIVER: Normal size. Smooth contour. Mild diffusely diminished attenuation consistent with fatty infiltration. No mass. No biliary ductal dilatation. GALLBLADDER AND BILE DUCTS: Unremarkable. PANCREAS: Unremarkable. No gross lesion or ductal dilatation. SPLEEN: Unremarkable. ADRENALS: Unremarkable. No mass. KIDNEYS AND URETERS: Unremarkable right kidney. Numerous left renal calculi. Left percutaneous nephro ureterostomy tube noted in upper pole of left kidney. In the lower pole there is a percutaneous nephrostomy tube. The ureteral stent terminates in the distal ureter. There are 2 small calculi alongside the distal aspect of the ureteral stent, best demonstrated on series 602, image 111. There are numerous small left renal calculi. There is irregularity of the left renal contour in the upper pole which may reflect prior ischemia or infection. There is an incipient staghorn calculus in the lower pole of the left kidney extending to the renal pelvis. There are 2 low-density left renal masses, likely cysts. There is no right renal mass. VASCULATURE: Unremarkable. No aortic aneurysm. BOWEL: Diverticulosis of the descending and proximal sigmoid colon. No evidence of diverticulitis. No bowel obstruction. No other abnormal bowel loops. APPENDIX: Unremarkable. Normal appendix. PERITONEUM: Unremarkable. No free fluid. No free air. LYMPH NODES: Unremarkable. No enlarged lymph nodes. BLADDER: Suboptimally distended. No gross abnormality. REPRODUCTIVE: Normal prostate. BONES: No acute fracture. OTHER FINDINGS: None. IMPRESSION: Left percutaneous nephro ureterostomy and 2nd left percutaneous nephrostomy tube noted. Staghorn calculus. Numerous additional smaller calculi. Two very small calculi are seen adjacent to the distal aspect of the left ureterostomy tube. No hydronephrosis. Several left renal low-density masses, likely cysts. Fatty liver. Additional minor findings as above.
[2017-05-11] MEDS ORDERED: Bupivacaine HCl 0.5% PF (10 ml) Inj ONE (09:18)
[2017-05-11] MEDS ORDERED: Iohexol 240 (50 ml) ONE ×2 (09:19→09:25)
[2017-05-11] MEDS ORDERED: Lactated Ringer's 1,000 ML IV ONE ×4 (09:30→15:00)
[2017-05-11] MEDS ORDERED: Ciprofloxacin 400mg/200ml D5W 400 MG/200 ML BAG IVPB ONE (09:36)
[2017-05-11] MEDS ORDERED: White Petrolatum/Mineral Oil Ophth Oint(3.5 gm) ONE (09:45)
--- NOTE | 2017-05-11 10:32 | RAD ---
Abdomen radiographs with obliques Comparison: CT abdomen pelvis without contrast performed 05/11/17, abdomen multiple views performed 05/06/17 Indication: Preop border Findings: Percutaneous left nephro ureterostomy tube. Second percutaneous left nephrostomy tube. Multiple left renal calculi. No definite right renal calculus evident. Nonobstructive bowel gas pattern. Mild degenerative changes. No acute osseous abnormality is detected. Impression: Left renal calculi. Left nephrostomy and nephro ureterostomy tubes.
[2017-05-11] MEDS ORDERED: ePHEDrine 50 mg/ml Inj ONE (10:42)
[2017-05-11] MEDS ORDERED: Oxycodone/Acetaminophen 5/325 mg Tab PO PRN (13:10)
--- NOTE | 2017-05-11 13:11 | PCM.SURG1 ---
Surgeon's Initial Post Op Note - Surgeon's Notes Surgeon: Celia MASSEY Clinical Education Assistant: NONE Type of Anesthesia: General Endo Pre-Operative Diagnosis: L RENAL CALCULI. HYDRONEPHROSIS Operative Findings: SAME Post-Operative Diagnosis: SAME Operation Performed: L PERCUTANEOUS NEPHROLITHOTOMY, ULTRASONIC LITHOSTRIPSY. LASER LITHOTRIPSY. FLEXILBLE NEPHROSCOPY. LOWER POLE PERCUTANEOUS NEPHROSTOMY ACCESS, ULTRASONIC LITHOTRIPSY. NEPHROSTOGRAM Specimen/Specimens Removed: URINE. STONES Estimated Blood Loss: EBL {In ML}: 150 Blood Products Given: N/A Post-Op Condition: Good Date of Surgery/Procedure: 05/11/17 Time of Surgery/Procedure: 12:45
[2017-05-11] MEDS ORDERED: Ciprofloxacin 400mg/200ml D5W 400 MG/200 ML BAG IVPB SCH (13:15)
[2017-05-11] MEDS: HYDROmorphone 0.5 mg/0.5 ml ISec IVP PRN ×2 (13:30→13:35)
--- NOTE | 2017-05-11 15:42 | RAD ---
PROCEDURE: Intraoperative fluoroscopy HISTORY: LT KIDNEY STONES COMPARISON: Not available TECHNIQUE: Intraoperative fluoroscopy was provided for percutaneous nephrostomy catheter exchange. Total time of fluoroscopy was 566.1 seconds. FINDINGS: Multiple fluoroscopic spot films are submitted. Films are on file for review. IMPRESSION: Fluoroscopy provided.
--- NOTE | 2017-05-11 19:35 | CP.PCM.HP ---
<Magda Jacobs - Last Filed: 05/11/17 19:28> History of Present Illness - History of Present Illness History of Present Illness: CC: post-op nephrolithotomy with lithotripsy HPI: 57 year old male with a past medical history of hypertension and nephrolithiasis, is post-op left nephrolithostomy with lithotripsy. He is admitted for post operative medical management. Patient was previously admitted in 04/2017 for medical management for post-operative nephrostomy with two tubes placed on the left and stent removal. Patient reports feeling tired, weak, dizzy and a little pain around surgical site. Patient denies chest pain, abdominal pain, headaches, shortness of breath, fevers, cough, leg pain, nausea , or vomiting. PMD: Dr. Gasca PMHx: HTN, nephrolithiasis PSx: "Right leg surgery 10 years ago"; stent for renal calculi 2014 FamHx: Brother- [place]; Father- [place] Allergies: Ceftriaxone Medications: "blood pressure medicine" Present on Admission - Present on Admission Any Indicators Present on Admission: No Review of Systems - Constitutional Constitutional: Fatigue, Weakness. absent: Fever, Headache - EENT Eyes: absent: Change in Vision, Other Visual Disturbances Ears: Dizziness - Cardiovascular Cardiovascular: absent: Chest Pain, Dyspnea, Leg Edema, Palpitations - Respiratory Respiratory: absent: Cough, Dyspnea - Gastrointestinal Gastrointestinal: absent: Abdominal Pain (sore around surgial site), Nausea, Vomiting - Genitourinary Genitourinary: absent: Dysuria, Urinary Frequency - Musculoskeletal Musculoskeletal: absent: Back Pain - Integumentary Integumentary: absent: Swelling - Neurological Neurological: Dizziness, Weakness. absent: Headaches, Loss of Vision - Endocrine Endocrine: Fatigue. absent: Palpitations Past Patient History - Past Medical History & Family History Past Medical History?: Yes - Past Social History Smoking Status: Never Smoked - CARDIAC Hx Cardiac Disorders: Yes Hx Hypertension: Yes Other/Comment: HX:CARDIAC CATH DONE 2006-"NO PROBLEMS" - PULMONARY Hx Respiratory Disorders: Yes (DYSPNEA ON EXERTION) - NEUROLOGICAL Hx Neurological Disorder: No - HEENT Hx HEENT Problems: Yes (GLASSES) - RENAL Hx Chronic Kidney Disease: Yes Hx Kidney Stones: Yes Other/Comment: Nephrostomy Tubes, left x2 - ENDOCRINE/METABOLIC Hx Endocrine Disorders: No - HEMATOLOGICAL/ONCOLOGICAL Hx Blood Disorders: No - INTEGUMENTARY Hx Dermatological Problems: No - MUSCULOSKELETAL/RHEUMATOLOGICAL Hx Musculoskeletal Disorders: Yes (KNEE SWELLING/ PAIN) Hx Falls: No Other/Comment: HX: UMBILICAL HERNIA - GASTROINTESTINAL Hx Gastrointestinal Disorders: Yes (UMBILICAL HERNIA) - GENITOURINARY/GYNECOLOGICAL Hx Genitourinary Disorders: Yes Hx Hematuria: Yes - PSYCHIATRIC Hx Psychophysiologic Disorder: Yes Hx Anxiety: Yes Hx Depression: Yes (ABOUT STONE PROBLEM) Hx Substance Use: No - SURGICAL HISTORY Hx Surgeries: Yes Hx Arthroscopy: Yes (RT. KNEE 8 YEARS AGO) Hx Cardiac Catheterization: Yes (2006-"NO PROBLEMS-EVERYTHING OK") Other/Comment: IN [place] CYSTO LITHOTRIPSY. insertion nephrostomy tube - ANESTHESIA Hx Anesthesia: Yes Hx Anesthesia Reactions: No Hx Malignant Hyperthermia: No Meds Allergies/Adverse Reactions: Allergies Allergy/AdvReac Type Severity Reaction Status Date / Time ceftriaxone [From Rocephin] Allergy Intermediate RASH Verified 03/08/17 09:29 Physical Exam - Constitutional Appears: No Acute Distress - Head Exam Head Exam: NORMAL INSPECTION, NORMOCEPHALIC - Eye Exam Eye Exam: EOMI, Normal appearance - ENT Exam ENT Exam: Mucous Membranes Moist - Neck Exam Neck exam: Positive for: Normal Inspection - Respiratory Exam Respiratory Exam: Clear to Auscultation Bilateral, NORMAL BREATHING PATTERN. absent: Rhonchi, Wheezes - Cardiovascular Exam Cardiovascular Exam: REGULAR RHYTHM, +S1, +S2 - GI/Abdominal Exam GI & Abdominal Exam: Normal Bowel Sounds, Soft - Extremities Exam Extremities exam: Positive for: normal inspection, pedal pulses present. Negative for: calf tenderness, pedal edema, tenderness - Neurological Exam Neurological exam: Alert, Oriented x3 - Psychiatric Exam Psychiatric exam: Normal Affect, Normal Mood - Skin Skin Exam: Dry, Intact, Normal Color, Warm Results - Vital Signs Recent Vital Signs: Last Vital Signs Temp 98.1 F 05/11/17 17:00 Pulse 89 05/11/17 17:00 Resp 11 L 05/11/17 17:00 BP 137/89 05/11/17 17:00 Pulse Ox 100 05/11/17 17:00 - Labs Labs: Laboratory Results - last 24 hr 05/11/17 09:08 Blood Type A POSITIVE Antibody Screen Negative Assessment & Plan (1) History of nephrolithotomy with removal of calculi Assessment and Plan: Monitor post-op surgical site. Tubes in place Tylenol 650mg PO Q6 PRN Percocet 2 tabs PO Q4 prn for severe pain Cipro 400mg IV Q[address] Urine Cx- ordered Status: Acute (2) HTN (hypertension) Assessment and Plan: Monitor BP Norvasc 10mg PO daily Heart Healthy Diet, 2gm Status: Chronic (3) Prophylactic measure Assessment and Plan: Pepcid 20mg PO daily Heart Healthy Diet, 2gm Heparin 5,000 units SC Q8 SCDs Activity as tolerated Status: Acute <Jan Aponte M - Last Filed: 05/12/17 15:59> Results - Vital Signs Recent Vital Signs: Last Vital Signs Temp 98.5 F 05/12/17 08:26 Pulse 84 05/12/17 08:26 Resp 20 05/12/17 08:26 BP 158/90 H 05/12/17 08:26 Pulse Ox 96 05/12/17 08:26 - Labs Result Diagrams: 05/12/17 06:14 05/12/17 06:14 Labs: Laboratory Results - last 24 hr 05/12/17 05/12/17 06:14 06:14 WBC 10.5 RBC 4.41 Hgb 13.0 Hct 38.9 MCV 88.3 MCH 29.4 MCHC 33.3 RDW 13.3 Plt Count 422 H MPV 8.8 Neut % (Auto) 65.7 Lymph % (Auto) 22.1 [place] % (Auto) 9.3 Eos % (Auto) 2.3 Baso % (Auto) 0.6 Neut # 6.9 Lymph # 2.3 [place] # 1.0 H Eos # 0.2 Baso # 0.1 Sodium 137 Potassium 3.3 L Chloride 99 Carbon Dioxide 28 Anion Gap 13 BUN 18 Creatinine 1.3 Est GFR ( Amer) > 60 Est GFR (Non-Af Amer) 57 Random Glucose 111 H Calcium 8.5 L Total Bilirubin 0.7 AST 20 ALT 29 Alkaline Phosphatase 52 Total Protein 6.8 Albumin 3.5 Globulin 3.3 Albumin/Globulin Ratio 1.0 Attending/Attestation - Attestation I have personally seen and examined this patient.: Yes I have fully participated in the care of the patient.: Yes I have reviewed all pertinent clinical information: Yes Notes (Text): 05/12/17 15:58 Patient was seen and examined at bedside with the resident Patient is status post lithotripsy. Postop management as per urology Discussed the plan of care with the resident and agree with the history and physical and assessment/plan by the resident.
[2017-05-11] MEDS: Oxycodone/Acetaminophen 5/325 mg Tab PO PRN (19:42)
[2017-05-11] MEDS: Ciprofloxacin 400mg/200ml D5W 400 MG/200 ML BAG IVPB SCH (22:21)
[2017-05-12 06:35] LABS: BASO # 0.1 K/uL (0.0-0.2); BASO % 0.6 % (0.0-2.0); EOS # 0.2 K/uL (0.0-0.7); EOS % 2.3 % (0.0-4.0); LYMPH # 2.3 K/uL (1.0-4.3); LYMPH % 22.1 % (20.0-40.0); MEAN CELL VOLUME 88.3 fL (80.0-94.0); MEAN CORPUSCULAR HEMOGLOBIN 29.4 pg (27.0-31.0); MEAN CORPUSCULAR HGB CONC 33.3 g/dL (33.0-37.0); MEAN PLATELET VOLUME 8.8 fL (7.2-11.7); MONO % 9.3 % (0.0-10.0); NEUT # 6.9 K/uL (1.8-7.0); NEUT % 65.7 % (50.0-75.0); RBC 4.41 Mil/uL (4.40-5.90); RED CELL DISTRIBUTION WIDTH 13.3 % (11.5-14.5); WHITE BLOOD COUNT 10.5 K/uL (4.8-10.8)
[2017-05-12 07:18] LABS: ALBUMIN 3.5 g/dL (3.5-5.0)
[2017-05-12 07:20] LABS: AST/SGOT 20 U/L (17-59); BLOOD UREA NITROGEN 18 mg/dL (9-20); GFR AFRICAN-AMERICAN > 60; GFR NON-AFRICAN AMERICAN 57
[2017-05-12 07:21] LABS: ALT/SGPT 29 U/L (21-72); CALCIUM 8.5 mg/dl (8.6-10.4)
--- NOTE | 2017-05-12 07:31 | PCM.URO ---
Urology Progress Note - General General: No Complaints, Tolerating Diet - Subjective Abdominal Pain: No Flank Pain: Yes (MILD) Nausea: No Vomiting: No Hematuria: Yes (MILD, VIA NT) Dsypnea: No Chest Pain: No Fever & Chills: No - Objective Lab Results Last 24 Hours: Laboratory Results - last 24 hr 05/11/17 05/12/17 09:08 06:14 WBC 10.5 RBC 4.41 Hgb 13.0 Hct 38.9 MCV 88.3 MCH 29.4 MCHC 33.3 RDW 13.3 Plt Count 422 H MPV 8.8 Neut % (Auto) 65.7 Lymph % (Auto) 22.1 [place] % (Auto) 9.3 Eos % (Auto) 2.3 Baso % (Auto) 0.6 Neut # 6.9 Lymph # 2.3 [place] # 1.0 H Eos # 0.2 Baso # 0.1 Blood Type A POSITIVE Antibody Screen Negative Intake & Output: Intake & Output 05/11/17 05/12/17 05/12/17 18:59 06:59 18:59 Intake Total 1750 Output Total 1675 1979 Balance -9225 230 Intake: Intake, IV Amount 1100 Right Antecubital 1100 Oral 650 Output: Drainage 480 Left 300 Left Lateral Abdomen 180 Urine 1675 1500 Urethral (Rodrigues) 1500 Other: Voiding Method Indwelling Catheter Vital Signs: Vital Signs - 24 hr 05/11/17 05/11/17 05/11/17 08:05 13:00 13:15 Temperature 97.3 F L 97.6 F Pulse Rate 83 91 H 92 H Pulse Rate [ Radial] Respiratory 20 11 L 12 Rate Blood Pressure 162/93 H 149/93 H 147/93 H O2 Sat by Pulse 98 100 100 Oximetry 05/11/17 05/11/17 05/11/17 13:30 13:45 14:00 Temperature Pulse Rate 86 82 75 Pulse Rate [ Radial] Respiratory 15 17 17 Rate Blood Pressure 158/95 H 134/82 139/78 O2 Sat by Pulse 100 100 100 Oximetry 05/11/17 05/11/17 05/11/17 14:05 14:15 14:30 Temperature Pulse Rate 79 78 78 Pulse Rate [ Radial] Respiratory 19 14 12 Rate Blood Pressure 137/89 141/88 135/87 O2 Sat by Pulse 100 100 100 Oximetry 07/03/2305/11/17 05/11/17 14:45 15:00 16:00 Temperature Pulse Rate 76 84 84 Pulse Rate [ Radial] Respiratory 11 L 14 13 Rate Blood Pressure 143/81 146/87 142/84 O2 Sat by Pulse 100 100 100 Oximetry 05/11/17 05/11/17 05/11/17 17:00 18:00 19:00 Temperature 98.1 F 98.7 F Pulse Rate 89 92 H 101 H Pulse Rate [ Radial] Respiratory 11 L 10 L 13 Rate Blood Pressure 137/89 135/97 H 151/94 H O2 Sat by Pulse 100 97 94 L Oximetry 05/11/17 05/11/17 05/11/17 19:38 20:00 23:20 Temperature 97.9 F 97.9 F Pulse Rate 95 H 97 H Pulse Rate [ 95 H Radial] Respiratory 20 20 Rate Blood Pressure 154/94 H 152/92 H O2 Sat by Pulse 94 L 95 Oximetry - Physical Exam Abdominal Exam: Soft, Non-Tender, Non-Distended Bowel Sounds: Normal (LUNGS - CLEAR HEART- REG RHYTHM) Dressing: Dry, Intact Urinary Catheter Draining Well: Yes Urine Color: Light [place] Extremities: Normal: Bilateral - Male Phallus: Normal, Uncircumcised - Plan Advance Diet: Yes Discontinue Urinary Catheter: Yes Wound Care: Yes Catheter Care: Yes Ambulation - Out of Bed: Yes Intake & Output: Yes See Orders: Yes Additional Information: IMP: DOING WELL. POST- PERC NEPHROLITHOTOMY - Date & Time of Note Date: 05/12/17 Time: 07:30
[2017-05-12] MEDS ORDERED: Potassium Chloride 20 mEq ER Tab PO ONE (09:10)
[2017-05-12] MEDS ORDERED: Pneumococcal 23-Valent Vaccine IM ONE (10:00)
[2017-05-12] MEDS: Ciprofloxacin 400mg/200ml D5W 400 MG/200 ML BAG IVPB SCH ×2 (10:18→21:30)
[2017-05-12] MEDS: Oxycodone/Acetaminophen 5/325 mg Tab PO PRN (14:22)
--- NOTE | 2017-05-12 18:52 | CP.PCM.PN ---
<ChrisAshwinijaney E - Last Filed: 05/12/17 19:10> Subjective - Date & Time of Evaluation Date of Evaluation: 05/12/17 Time of Evaluation: 09:30 - Subjective Subjective: Medicine Note (PGY 1) : Dr. Aponte Patient is s/p L percutaneous nephrolithotomy, ultrasonic lithostripsy day 1, who was seen and examined at bedside. Patient states that he is doing well with minimal pain. Patient denies chest pain, shortness of breath, fever, chills, nausea and vomiting. Patient is yet to pass flatus and have a bowel movement. Patient is tolerating diet and ambulating. Objective - Vital Signs/Intake and Output Vital Signs (last 24 hours): Temp Pulse Resp BP Pulse Ox 98.2 F 76 20 137/89 96 05/12/17 15:11 05/12/17 15:11 05/12/17 15:11 05/12/17 15:11 05/12/17 15:11 Intake and Output: 05/12/17 05/12/17 06:59 18:59 Intake Total 1750 400 Output Total 1980 900 Balance -230 -500 - Medications Medications: Current Medications Acetaminophen (Tylenol 325mg Tab) 650 mg PO Q6 PRN PRN Reason: Pain, Mild (1-3) Amlodipine Besylate (Norvasc) 10 mg PO DAILY [facility] Last Admin: 05/12/17 10:16 Dose: 10 mg Carvedilol (Coreg) 6.25 mg PO BID [facility] Last Admin: 05/12/17 17:46 Dose: 6.25 mg Famotidine (Pepcid) 20 mg PO DAILY@1800 [facility] Last Admin: 05/12/17 17:46 Dose: 20 mg Heparin Sodium (Porcine) (Heparin) 5,000 units SC Q8 [facility] Last Admin: 05/12/17 13:19 Dose: 5,000 units Ciprofloxacin (Cipro 400mg/200ml Dsw) 400 mg in 200 mls @ 200 mls/hr IVPB Q12H [facility] Last Admin: 05/12/17 10:18 Dose: 200 mls/hr Oxycodone/Acetaminophen (Percocet 5/325 Mg Tab) 2 tab PO Q4H PRN PRN Reason: Pain, moderate (4-7) Stop: 05/14/17 13:09 Last Admin: 05/12/17 14:22 Dose: 2 tab - Labs Labs: 05/12/17 06:14 05/12/17 06:14 - Constitutional Appears: Well, No Acute Distress - Head Exam Head Exam: NORMAL INSPECTION, NORMOCEPHALIC - Eye Exam Eye Exam: EOMI, Normal appearance - ENT Exam ENT Exam: Mucous Membranes Moist, Normal Exam - Respiratory Exam Respiratory Exam: Clear to Ausculation Bilateral, NORMAL BREATHING PATTERN - Cardiovascular Exam Cardiovascular Exam: REGULAR RHYTHM, +S1, +S2 - GI/Abdominal Exam GI & Abdominal Exam: Soft, Normal Bowel Sounds - Extremities Exam Extremities Exam: Normal Capillary Refill, Normal Inspection - Neurological Exam Neurological Exam: Alert, Awake, Oriented x3 - Psychiatric Exam Psychiatric exam: Normal Affect, Normal Mood - Skin Skin Exam: Dry, Normal Color, Warm Assessment and Plan (1) Renal calculus, left Assessment & Plan: s/p day 1 L percutaneous nephrolithotomy, ultrasonic lithostripsy day Aferbrile Surgical site was clean, dressing intact Left nephrostomy tubes in place Tylenol 650mg PO Q6 PRN Percocet 2 tabs PO Q4 prn for severe pain Cipro 400mg IV Q[address]---> d/c 05/12/17 * Good urine output Urine Cx- Gram + cocci * Continue antibiotics PT and OT evaluation * Patient is ambulating on his own without assistance Status: Acute (2) HTN (hypertension) Assessment & Plan: Monitor BP Norvasc 10mg PO daily Coreg 6.25mg PO BID (Home medication) --->Started on 05/12/17 Heart Healthy Diet, 2gm Status: Chronic (3) Prophylactic measure Assessment & Plan: Pepcid 20mg PO daily Heart Healthy Diet, 2gm Heparin 5,000 units SC Q8 SCDs Activity as tolerated ( Patient is ambulating) Status: Acute <FadiMikejose Elder - Last Filed: 05/13/17 08:53> Objective - Vital Signs/Intake and Output Vital Signs (last 24 hours): Temp Pulse Resp BP Pulse Ox 98.4 F 100 H 18 153/93 H 95 05/13/17 07:25 05/13/17 07:25 05/13/17 07:25 05/13/17 07:25 05/13/17 07:25 Intake and Output: 05/13/17 05/13/17 06:59 18:59 Intake Total 1500 Output Total 1725 Balance -225 - Medications Medications: Current Medications Acetaminophen (Tylenol 325mg Tab) 650 mg PO Q6 PRN PRN Reason: Pain, Mild (1-3) Amlodipine Besylate (Norvasc) 10 mg PO DAILY [facility] Last Admin: 05/12/17 10:16 Dose: 10 mg Carvedilol (Coreg) 6.25 mg PO BID [facility] Last Admin: 05/12/17 17:46 Dose: 6.25 mg Famotidine (Pepcid) 20 mg PO DAILY@1800 [facility] Last Admin: 05/12/17 17:46 Dose: 20 mg Heparin Sodium (Porcine) (Heparin) 5,000 units SC Q8 [facility] Last Admin: 05/13/17 05:30 Dose: 5,000 units Ciprofloxacin (Cipro 400mg/200ml Dsw) 400 mg in 200 mls @ 200 mls/hr IVPB Q12H [facility] Last Admin: 05/12/17 21:30 Dose: 200 mls/hr Oxycodone/Acetaminophen (Percocet 5/325 Mg Tab) 2 tab PO Q4H PRN PRN Reason: Pain, moderate (4-7) Stop: 05/14/17 13:09 Last Admin: 05/12/17 14:22 Dose: 2 tab - Labs Labs: 05/13/17 07:05 05/13/17 07:05 Attending/Attestation - Attestation I have personally seen and examined this patient.: Yes I have fully participated in the care of the patient.: Yes I have reviewed all pertinent clinical information, including history, physical exam and plan: Yes Notes (Text): 05/13/17 08:52 Patient was seen and examined at bedside with the resident Patient denies any pain at the nephrostomy tubes site Output noted from the nephrostomy tubes Urology follow-up seen and appreciated Discussed the plan of care with the resident agree with the assessment and plan by the resident.
[2017-05-13 07:33] LABS: BASO # 0.1 K/uL (0.0-0.2); BASO % 0.6 % (0.0-2.0); EOS # 0.4 K/uL (0.0-0.7); EOS % 3.3 % (0.0-4.0); HEMOGLOBIN 13.7 g/dL (12.0-18.0); LYMPH # 2.1 K/uL (1.0-4.3); LYMPH % 19.6 % (20.0-40.0); MEAN CELL VOLUME 87.5 fL (80.0-94.0); MEAN CORPUSCULAR HEMOGLOBIN 29.6 pg (27.0-31.0); MEAN CORPUSCULAR HGB CONC 33.8 g/dL (33.0-37.0); MEAN PLATELET VOLUME 8.9 fL (7.2-11.7); MONO % 9.8 % (0.0-10.0); NEUT # 7.2 K/uL (1.8-7.0); NEUT % 66.7 % (50.0-75.0); NRBC % 0.1 % (0.0-2.0); RBC 4.62 Mil/uL (4.40-5.90); RED CELL DISTRIBUTION WIDTH 13.4 % (11.5-14.5); WHITE BLOOD COUNT 10.7 K/uL (4.8-10.8)
[2017-05-13 07:45] LABS: ALBUMIN 3.8 g/dL (3.5-5.0)
[2017-05-13 07:48] LABS: ALB/GLOB RATIO 1.1 (1.0-2.1); ALT/SGPT 28 U/L (21-72); AST/SGOT 20 U/L (17-59); BLOOD UREA NITROGEN 18 mg/dL (9-20); GFR AFRICAN-AMERICAN > 60; GFR NON-AFRICAN AMERICAN 57
[2017-05-13 07:49] LABS: CALCIUM 9.1 mg/dl (8.6-10.4); MAGNESIUM 2.1 mg/dL (1.6-2.3)
[2017-05-13 08:15] VITALS: RESP 18; TEMP 98.4; O2SAT 95
[2017-05-13 10:24] VITALS: BP 160/99; PULSE 82
[2017-05-13] MEDS: Ciprofloxacin 400mg/200ml D5W 400 MG/200 ML BAG IVPB SCH (10:25)
[2017-05-13] MEDS ORDERED: Potassium Chloride 20 mEq ER Tab PO ONE ×2 (11:28→12:45)
--- NOTE | 2017-05-13 14:11 | PCM.URO ---
Urology Progress Note - General General: No Complaints, Tolerating Diet - Subjective Abdominal Pain: No Flank Pain: Yes (mild) Nausea: No Vomiting: No Voiding Well: Yes Dysuria: No Hematuria: No Urinary Urgency: No Good Stream: Yes Weak Stream: No Stone Passed: No Chest Pain: No - Objective Lab Studies: Reviewed Lab Results Last 24 Hours: Laboratory Results - last 24 hr 05/13/17 05/13/17 07:05 07:05 WBC 10.7 RBC 4.62 Hgb 13.7 Hct 40.4 MCV 87.5 MCH 29.6 MCHC 33.8 RDW 13.4 Plt Count 401 H MPV 8.9 Neut % (Auto) 66.7 Lymph % (Auto) 19.6 L [place] % (Auto) 9.8 Eos % (Auto) 3.3 Baso % (Auto) 0.6 Neut # 7.2 H Lymph # 2.1 [place] # 1.0 H Eos # 0.4 Baso # 0.1 Sodium 137 Potassium 3.5 L Chloride 99 Carbon Dioxide 27 Anion Gap 14 BUN 18 Creatinine 1.3 Est GFR ( Amer) > 60 Est GFR (Non-Af Amer) 57 Random Glucose 99 Calcium 9.1 Phosphorus 3.9 Magnesium 2.1 Total Bilirubin 0.8 AST 20 ALT 28 Alkaline Phosphatase 66 Total Protein 7.4 Albumin 3.8 Globulin 3.6 Albumin/Globulin Ratio 1.1 Intake & Output: Intake & Output 05/12/17 05/13/17 05/13/17 18:59 06:59 18:59 Intake Total 400 1500 Output Total 900 1725 Balance -500 -225 Intake: Oral 400 1500 Output: Drainage 300 600 Left 200 350 Left Lateral Abdomen 100 250 Urine 600 1125 Urethral (Rodrigues) 600 Urine, Voided 1125 Other: # Voids Urethral (Rodrigues) 1 # Bowel Movements 0 0 Vital Signs: Vital Signs - 24 hr 05/12/17 05/12/17 05/12/17 15:11 21:50 23:20 Temperature 98.2 F 98.4 F 98.7 F Pulse Rate 76 91 H 86 Respiratory 20 20 20 Rate Blood Pressure 137/89 142/90 151/95 H O2 Sat by Pulse 96 95 96 Oximetry 05/13/17 05/13/17 07:25 10:24 Temperature 98.4 F Pulse Rate 100 H 82 Respiratory 18 Rate Blood Pressure 153/93 H 160/99 H O2 Sat by Pulse 95 Oximetry - Physical Exam Abdominal Exam: Soft, Non-Tender, Non-Distended Bowel Sounds: Normal Wound: Clean Dressing: Dry, Intact Back: No CVA Tenderness Genitalia: Without Inflammation Urinary Catheter Draining Well: No (catheter removed yestercay) Extremities: Normal: Bilateral - Male Phallus: Normal - Plan Advance Diet: Yes Wound Care: Yes Catheter Care: Yes Intake & Output: Yes Additional Information: home today. out pt f/u. rx given Doxycyline, acc to culture - Date & Time of Note Date: 05/13/17 Time: 14:11
--- NOTE | 2017-05-13 15:01 | RAD ---
HISTORY: UROLITHIASIS COMPARISON: 05/11/2017 FINDINGS: BOWEL: Decreased number of left renal calculi compared to prior examination. Left percutaneous nephro ureterostomy tube. Second left percutaneous nephrostomy tube. Unremarkable bowel gas pattern. BONES: Normal. OTHER FINDINGS: None. IMPRESSION: Decreased number of left renal calculi compared to 05/11/2017. Percutaneous left nephrostomy tube and percutaneous left nephro ureterostomy tube are grossly unchanged.
--- NOTE | 2017-05-13 22:39 | CP.PCM.DIS ---
<Sheeba Perez E - Last Filed: 05/13/17 22:39> Provider - Provider Date of Admission: 05/11/17 07:53 Attending physician: Geraldine Naranjo MD Time Spent in preparation of Discharge (in minutes): 45 Diagnosis - Discharge Diagnosis (1) Renal calculus, left Status: Acute (2) HTN (hypertension) Status: Chronic (3) Prophylactic measure Status: Acute Hospital Course - Lab Results Lab Results: Micro Results 05/11/17 11:31 Urine,Kidney Urine Culture - Final Coagulase Neg Staphylococcus Most Recent Lab Values WBC 10.7 K/uL (4.8-10.8) 05/13/17 07:05 RBC 4.62 Mil/uL (4.40-5.90) 05/13/17 07:05 Hgb 13.7 g/dL (12.0-18.0) 05/13/17 07:05 Hct 40.4 % (35.0-51.0) 05/13/17 07:05 MCV 87.5 fL (80.0-94.0) 05/13/17 07:05 MCH 29.6 pg (27.0-31.0) 05/13/17 07:05 MCHC 33.8 g/dL (33.0-37.0) 05/13/17 07:05 RDW 13.4 % (11.5-14.5) 05/13/17 07:05 Plt Count 401 K/uL (130-400) H 05/13/17 07:05 MPV 8.9 fL (7.2-11.7) 05/13/17 07:05 Neut % (Auto) 66.7 % (50.0-75.0) 05/13/17 07:05 Lymph % (Auto) 19.6 % (20.0-40.0) L 05/13/17 07:05 Posey % (Auto) 9.8 % (0.0-10.0) 05/13/17 07:05 Eos % (Auto) 3.3 % (0.0-4.0) 05/13/17 07:05 Baso % (Auto) 0.6 % (0.0-2.0) 05/13/17 07:05 Neut # 7.2 K/uL (1.8-7.0) H 05/13/17 07:05 Lymph # 2.1 K/uL (1.0-4.3) 05/13/17 07:05 Posey # 1.0 K/uL (0.0-0.8) H 05/13/17 07:05 Eos # 0.4 K/uL (0.0-0.7) 05/13/17 07:05 Baso # 0.1 K/uL (0.0-0.2) 05/13/17 07:05 Sodium 137 mmol/L (132-148) 05/13/17 07:05 Potassium 3.5 mmol/L (3.6-5.2) L 05/13/17 07:05 Chloride 99 mmol/L (98-107) 05/13/17 07:05 Carbon Dioxide 27 mmol/L (22-30) 05/13/17 07:05 Anion Gap 14 (10-20) 05/13/17 07:05 BUN 18 mg/dL (9-20) 05/13/17 07:05 Creatinine 1.3 MG/DL (0.8-1.5) 05/13/17 07:05 Est GFR ( Amer) > 60 05/13/17 07:05 Est GFR (Non-Af Amer) 57 05/13/17 07:05 Random Glucose 99 mg/dL (75-110) 05/13/17 07:05 Calcium 9.1 mg/dl (8.6-10.4) 05/13/17 07:05 Phosphorus 3.9 mg/dL (2.5-4.5) 05/13/17 07:05 Magnesium 2.1 mg/dL (1.6-2.3) 05/13/17 07:05 Total Bilirubin 0.8 mg/dL (0.2-1.3) 05/13/17 07:05 AST 20 U/L (17-59) 05/13/17 07:05 ALT 28 U/L (21-72) 05/13/17 07:05 Alkaline Phosphatase 66 U/L (38-126) 05/13/17 07:05 Total Protein 7.4 g/dL (6.3-8.3) 05/13/17 07:05 Albumin 3.8 g/dL (3.5-5.0) 05/13/17 07:05 Globulin 3.6 gm/dL (2.2-3.9) 05/13/17 07:05 Albumin/Globulin Ratio 1.1 (1.0-2.1) 05/13/17 07:05 Blood Type A POSITIVE 05/11/17 09:08 Antibody Screen Negative 05/11/17 09:08 - Hospital Course Hospital Course: As per admission: HPI: 57 year old male with a past medical history of hypertension and nephrolithiasis , is post-op left nephrolithostomy with lithotripsy. He is admitted for post operative medical management. Patient was previously admitted in 04/2017 for medical management for post-operative nephrostomy with two tubes placed on the left and stent removal. Patient reports feeling tired, weak, dizzy and a little pain around surgical site. Patient denies chest pain, abdominal pain, headaches , shortness of breath, fevers, cough, leg pain, nausea, or vomiting. Hospital Course: Patient was admitted for post-operative medical management. Patient was medically managed on antibiotics with pain control. Urologist, Dr. naranjo was on the case and monitored the patient's progress as well. Patient did well during the course of admission; tolerating diet and ambulating on his own. Patient was cleared by Dr. Naranjo and was discharged home with appropriate instructions and medications. Pertinent Study Result: * Abdominal X-ray (05/11/17): Left renal calculi, left nephrostomy and nephro uterostomy tubes * Abdominal/Pelvis CT (05/11/17)Left percutaneous nephro ureterostomy and 2nd left percutaneous nephrostomy tube noted. Staghorn calculus. Numerous additional smaller calculi. Two very small calculi are seen adjacent to the distal aspect of the left ureterostomy tube. No hydronephrosis. Several left renal low-density masses, likely cysts. Fatty liver * Abdominal X-ray 05/13/17: Decreased number of left renal calculi compared to 05/11. Percutaneous left nephrostomy tube and percutaneous left nephro ureterostomy tube are grossly unchanged This is a brief summary of events. For a complete course, refer to other medical record. Discharge Exam - Head Exam Head Exam: NORMAL INSPECTION, NORMOCEPHALIC Discharge Plan - Follow Up Plan Condition: GOOD Disposition: HOME/ ROUTINE Instructions: Kidney Stones (DC), Percutaneous Nephrolithotomy (DC), Lithotripsy (DC), Heart Healthy Diet (DC) Additional Instructions: Please discharge patient home as per Dr. Naranjo and Dr. Aponte Please resume all home medications as prescribed Please start all new medications as prescribed by Dr. Naranjo Please follow up with your urologist ( Dr. Naranjo) within one week Please follow up with your primary care physician, Dr. Konstantin Santos within one week Please return to the hospital if symptoms resume. Referrals: Konstantin Santos [Family Provider] - Geraldine Naranjo MD [Staff Provider] - <Jan Aponte - Last Filed: 05/14/17 17:30> Provider - Provider Date of Admission: 05/11/17 07:53 Attending physician: Geraldine Naranjo MD Hospital Course - Lab Results Lab Results: Micro Results 05/11/17 11:31 Urine,Kidney Urine Culture - Final Coagulase Neg Staphylococcus Most Recent Lab Values WBC 10.7 K/uL (4.8-10.8) 05/13/17 07:05 RBC 4.62 Mil/uL (4.40-5.90) 05/13/17 07:05 Hgb 13.7 g/dL (12.0-18.0) 05/13/17 07:05 Hct 40.4 % (35.0-51.0) 05/13/17 07:05 MCV 87.5 fL (80.0-94.0) 05/13/17 07:05 MCH 29.6 pg (27.0-31.0) 05/13/17 07:05 MCHC 33.8 g/dL (33.0-37.0) 05/13/17 07:05 RDW 13.4 % (11.5-14.5) 05/13/17 07:05 Plt Count 401 K/uL (130-400) H 05/13/17 07:05 MPV 8.9 fL (7.2-11.7) 05/13/17 07:05 Neut % (Auto) 66.7 % (50.0-75.0) 05/13/17 07:05 Lymph % (Auto) 19.6 % (20.0-40.0) L 05/13/17 07:05 Posey % (Auto) 9.8 % (0.0-10.0) 05/13/17 07:05 Eos % (Auto) 3.3 % (0.0-4.0) 05/13/17 07:05 Baso % (Auto) 0.6 % (0.0-2.0) 05/13/17 07:05 Neut # 7.2 K/uL (1.8-7.0) H 05/13/17 07:05 Lymph # 2.1 K/uL (1.0-4.3) 05/13/17 07:05 Posey # 1.0 K/uL (0.0-0.8) H 05/13/17 07:05 Eos # 0.4 K/uL (0.0-0.7) 05/13/17 07:05 Baso # 0.1 K/uL (0.0-0.2) 05/13/17 07:05 Sodium 137 mmol/L (132-148) 05/13/17 07:05 Potassium 3.5 mmol/L (3.6-5.2) L 05/13/17 07:05 Chloride 99 mmol/L (98-107) 05/13/17 07:05 Carbon Dioxide 27 mmol/L (22-30) 05/13/17 07:05 Anion Gap 14 (10-20) 05/13/17 07:05 BUN 18 mg/dL (9-20) 05/13/17 07:05 Creatinine 1.3 MG/DL (0.8-1.5) 05/13/17 07:05 Est GFR ( Amer) > 60 05/13/17 07:05 Est GFR (Non-Af Amer) 57 05/13/17 07:05 Random Glucose 99 mg/dL (75-110) 05/13/17 07:05 Calcium 9.1 mg/dl (8.6-10.4) 05/13/17 07:05 Phosphorus 3.9 mg/dL (2.5-4.5) 05/13/17 07:05 Magnesium 2.1 mg/dL (1.6-2.3) 05/13/17 07:05 Total Bilirubin 0.8 mg/dL (0.2-1.3) 05/13/17 07:05 AST 20 U/L (17-59) 05/13/17 07:05 ALT 28 U/L (21-72) 05/13/17 07:05 Alkaline Phosphatase 66 U/L (38-126) 05/13/17 07:05 Total Protein 7.4 g/dL (6.3-8.3) 05/13/17 07:05 Albumin 3.8 g/dL (3.5-5.0) 05/13/17 07:05 Globulin 3.6 gm/dL (2.2-3.9) 05/13/17 07:05 Albumin/Globulin Ratio 1.1 (1.0-2.1) 05/13/17 07:05 Blood Type A POSITIVE 05/11/17 09:08 Antibody Screen Negative 05/11/17 09:08 Attending/Attestation - Attestation I have personally seen and examined this patient.: Yes I have fully participated in the care of the patient.: Yes I have reviewed all pertinent clinical information, including history, physical exam and plan: Yes Notes (Text): 05/14/17 17:30 Patient was seen and examined at bedside with the resident Patient is comfortable and denies any pain Urine is In clear for discharge by Dr. Naranjo We will discharge on oral antibiotic and patient will follow with Dr. Naranjo as outpatient
== END 2017-05-13 16:00 | disposition home or self-care (01) | DRG 304 ==
LOC: C.9S 07:53 → C.6T 19:25
PROVIDERS: ADMIT Urology; ATTEND Urology
PROC: 0TC18ZZ Extirpation of Matter from Left Kidney, Via Natural or Artificial Opening Endoscopic (ICD-10-PCS; principal; 2017-05-11 09:00)
DX: N20.0 Calculus of kidney (principal); N13.39 Other hydronephrosis; I10 Essential (primary) hypertension

== ENCOUNTER 2017-05-23 08:25 | Day surgery (SDC) | payer OTHER ==
[2017-05-06 08:21] VITALS: BMI 35.7
[2017-05-23] MEDS ORDERED: Iohexol 240 200 ML IJ ONE (10:11)
[2017-05-23] MEDS ORDERED: Gentamicin 80 mg in 0.9% NS 0 MG/0 ML BAG IVPB ONE (10:11)
--- NOTE | 2017-05-23 10:48 | PCM.SURG1 ---
Surgeon's Initial Post Op Note - Surgeon's Notes Surgeon: sharon valdovinos Customer Services Coordinator: none Type of Anesthesia: None Pre-Operative Diagnosis: L urolithiasis, hydronephrosis Operative Findings: same Post-Operative Diagnosis: same Operation Performed: L nephrostogram, removal of L nephrostomy tubes Specimen/Specimens Removed: none Estimated Blood Loss: EBL {In ML}: 0 Blood Products Given: N/A Drains Used: No Drains Post-Op Condition: Good Date of Surgery/Procedure: 05/23/17 Time of Surgery/Procedure: 10:47
[2017-05-23] MEDS ORDERED: Lactated Ringer's 1,000 ML IV ONE (10:50)
[2017-05-23 11:14] VITALS: BP 136/90; PULSE 63; RESP 18; TEMP 97.3; O2SAT 100
--- NOTE | 2017-05-23 16:59 | RAD ---
PROCEDURE: Intraoperative fluoroscopy HISTORY: LT. HYDRONEPROSIS COMPARISON: Not available TECHNIQUE: Intraoperative fluoroscopy was provided for left nephrostogram. Total time of fluoroscopy is less than 1 hour. FINDINGS: Multiple fluoroscopic spot films are submitted. Films are on file for review. IMPRESSION: Fluoroscopy provided.
--- NOTE | 2017-05-30 06:47 | OP ---
PROCEDURE DATE: 05/23/2017 PREOPERATIVE DIAGNOSIS: Urolithiasis. POSTOPERATIVE DIAGNOSIS: Urolithiasis. PROCEDURE: Left nephrectomy. Removal of left nephrostomy tube. OPERATING SURGEON: Dr. Geraldine Naranjo DESCRIPTION OF PROCEDURE: Patient was placed in the prone position. The flank was prepped in a sterile fashion. The procedure was performed under fluoroscopic control. *------* the abdomen revealed nephroureteral stent in good position. They were noted to be residual stones in the upper and lower pole. *------* views were obtained. There was good flow contrast to the bladder. There was *------* kidney. The nephrectomy tube was removed. Sterile dressing was applied. The patient tolerated the procedure without complication. Geraldine Naranjo MD
== END 2017-05-23 11:16 | disposition home or self-care (01) ==
LOC: C.SDS 08:25
PROVIDERS: ATTEND Urology
DX: Z46.6 Encounter for fitting and adjustment of urinary device (principal); N13.2 Hydronephrosis with renal and ureteral calculous obstruction
CPT/HCPCS: 50389; 50431; 76000; J7120; Q9966